=== PATIENT | female | born 1950 | race Two or more races ===

== ENCOUNTER → 2019-05-16 | Outpatient (CLI) | payer MEDICARE, OTHER ==
[~2019-05-16] MED LIST: ASPIRIN EC81 MG ORAL; CARVEDILOL6.25 MG ORAL; COUMADIN3 MG ORAL; FUROSEMIDE20 M1 ORAL; KCL; OMEPRAZOLE40 M1 ORAL
--- NOTE | 2019-05-16 18:00 | Consultation ---
DATE OF CONSULTATION: 05/16/2019 REASON FOR CONSULTATION: Referral for colonoscopy. HISTORY OF PRESENT ILLNESS: This is a very pleasant 68-year-old female with past medical history of diabetes, history of mitral valve replacement, mechanical one, was referred to us for evaluation for screening colonoscopy. PAST MEDICAL HISTORY: 1. Diabetes. 2. Cardiac valve surgery. 3. Hypertension. 4. Gastroesophageal reflux disease. PAST SURGICAL HISTORY: Cardiac valve replacement. MEDICATIONS: She is on potassium, Lasix, Carvedilol, Coumadin, aspirin, and omeprazole. ALLERGIES: No known allergies. FAMILY HISTORY: No family history of GI malignancies. SOCIAL HISTORY: The patient denies any tobacco, alcohol, or IV drug abuse. REVIEW OF SYSTEMS: A 10-point review of systems was performed and pertinent positives in HPI. PHYSICAL EXAMINATION: VITAL SIGNS: Stable. The patient is afebrile. HEENT: Normocephalic and atraumatic. Sclerae anicteric. NECK: Supple. No evidence of obvious lymphadenopathy. CARDIOVASCULAR: Regular rate and rhythm. Plus S1 and S2. No obvious murmur. LUNGS: Clear to auscultation bilaterally. ABDOMEN: Positive bowel sounds. Soft and nontender. No rebound. No guarding. No peritoneal sign. EXTREMITIES: No cyanosis. No clubbing. No edema. LABORATORY DATA: Not available. ASSESSMENT AND PLAN: A 68-year-old female with evidence of history of anemia also needs a screening colonoscopy. Referred for endoscopy and colonoscopy. The risks and benefits of the procedure were discussed in detail. The patient was given the prep. The patient was told to stop the Coumadin 3 days prior to the procedure and the patient was placed on Lovenox twice a day injections for pre and postprocedure. The patient is scheduled for , 05/31/2019. I want to thank, Dr. Bridges, for this kind referral. Bert Nice M.D. DR: LANG JOB#: [id number] CC: Estefania Bridges M.D.; Fax#: [phone]
== END | disposition home or self-care (01) ==
LOC: PAN 12:52
DX: E11.9 Type 2 diabetes mellitus without complications (principal); I10 Essential (primary) hypertension; K21.9 Gastro-esophageal reflux disease without esophagitis; Z79.01 Long term (current) use of anticoagulants; Z95.2 Presence of prosthetic heart valve; Z79.82 Long term (current) use of aspirin; Z79.899 Other long term (current) drug therapy

== ENCOUNTER 2019-05-30 09:01 | Day surgery (SDC) | payer MEDICARE, OTHER ==
[~2019-05-30] VITALS: Ht 152.4 cm; Wt 67.6 kg
[2019-05-30] VITALS (9 sets, daily range): BP systolic 93–112; BP diastolic 58–64
[2019-05-30] MEDS ORDERED: SILDENAFIL20 MG ORAL (09:39)
[2019-05-30] MEDS ORDERED: FUROSEMIDE40 MG ORAL (09:39)
[2019-05-30] MEDS ORDERED: WARFARIN SODIUM2 MG ORAL (09:39)
[2019-05-30 10:01] LABS: HEMOGLOBIN 10.7 G/DL (12.0-16.0); MEAN CORPUSCULAR VOLUME 95 FL (80-99); PLATELET COUNT 163 K/UL (150-450); RED BLOOD COUNT 3.59 M/UL (4.20-5.40); RED CELL DISTRIBUTION WIDTH 13.3 % (11.6-14.8)
[2019-05-30 10:07] LABS: INR 1.9 (0.9-1.1)
[2019-05-30 10:09] LABS: ANION GAP 11 mmol/L (5-15); BLOOD UREA NITROGEN 13 mg/dL (7-18); CALCIUM 8.6 MG/DL (8.5-10.1); CARBON DIOXIDE 23 MMOL/L (21-32); CHLORIDE 102 MMOL/L (98-107); CREATININE 0.9 MG/DL (0.55-1.30); POTASSIUM 3.9 MMOL/L (3.5-5.1); SODIUM 136 MMOL/L (136-145)
[2019-05-30] MEDS ORDERED: LOVENOX10 MG SUBQ (10:26)
--- NOTE | 2019-05-30 10:38 | NUR ---
spoke with Dr Nice regarding blood thinner management. Pt has held Coumadin since 05/27/19 and started Lovenox injection from 05/28/19. INR this morning shows 1.9. Dr Nice is ok to proceed procedure. Anesthesiologist was notified and discuss it pre procedure as needed. Post procedure blood thinner management will be ordered. Addendum: 05/30/19 at 1100 by EKATERINA CASTAÑEDA Amended: Links added.
[2019-05-30] MEDS ORDERED: DiphenhydrAMINE 50mg/ml Inj IVP PRN (10:45)
[2019-05-30] MEDS ORDERED: Lidocaine 1% MPF 10mg/ml 5ml ONE (10:45)
[2019-05-30] MEDS ORDERED: Atropine Sulfate 0.4mg/ml inj IVP PRN (10:45)
[2019-05-30] MEDS ORDERED: fentaNYL 100 mcg/2 mL IV PRN (10:45)
[2019-05-30] MEDS ORDERED: Midazolam 2mg/2ml Inj IVP PRN (10:45)
[2019-05-30] MEDS ORDERED: Propofol 200mg/20ml IV ONE (10:45)
--- NOTE | 2019-05-30 10:50 | Anethesia Preoperative Eval ---
Anesthesia Pre-op PMH/ROS General Date of Evaluation: May 30, 2019 Time of Evaluation: 10:41 Anesthesiologist: estela ASA Score: ASA 4 Mallampati Score Class I : Soft palate, uvula, fauces, pillars visible Class II: Soft palate, uvula, fauces visible Class III: Soft palate, base of uvula visible Class IV: Only hard plate visible Mallampati Classification: Class II Surgeon: suzanne Diagnosis: abdominal pain Surgical Procedure: colonoscopy Anesthesia History: none Social History: smoking - nonsmoker Family History: no anesthesia problems Allergies: Coded Allergies: No Known Allergies (Unverified , 05/30/19) Medications: see eMAR Patient NPO?: Yes Past Medical History Cardiovascular: Reports: HTN, CAD, valve dz - valve replacement, arrhythmia, other - chf HEENT: Reports: cataract (L), cataract (R), other - ear pain Hematology/Immune: Reports: anemia, other - anticoagulant therapy on coumadin Musculoskeletal/Integumentary: Reports: OA PSxH Narrative: cardia valve replacement, hysterectomy Anesthesia Pre-op Phys. Exam Physician Exam Last Vital Signs Date Time Temp Pulse Resp B/P (MAP) Pulse Ox O2 Delivery O2 Flow Rate FiO2 05/30/19 10:05 Room Air 05/30/19 09:54 98.6 100 18 112/62 100 Constitutional: NAD Neurologic: CN 2-12 intact Cardiovascular: other - irreg irreg Respiratory: CTA Gastrointestinal: S/NT/ND Airway Exam Mallampati Score: Class II MO: limited Neck: flexible TMD: 2fb ROM: limited Dentures: upper, lower Anesthesia Pre-op A/P Labs Hematology Test 05/30/19 09:49 White Blood Count 11.0 K/UL (4.8-10.8) H Red Blood Count 3.59 M/UL (4.20-5.40) L Hemoglobin 10.7 G/DL (12.0-16.0) L Hematocrit 34.0 % (37.0-47.0) L Mean Corpuscular Volume 95 FL (80-99) Mean Corpuscular Hemoglobin 29.9 PG (27.0-31.0) Mean Corpuscular Hemoglobin Concent 31.6 G/DL (32.0-36.0) L Red Cell Distribution Width 13.3 % (11.6-14.8) Platelet Count 163 K/UL (150-450) Mean Platelet Volume 9.1 FL (6.5-10.1) Neutrophils (%) (Auto) % (45.0-75.0) Lymphocytes (%) (Auto) % (20.0-45.0) Monocytes (%) (Auto) % (1.0-10.0) Eosinophils (%) (Auto) % (0.0-3.0) Basophils (%) (Auto) % (0.0-2.0) Differential Total Cells Counted 100 Neutrophils % (Manual) 89 % (45-75) H Lymphocytes % (Manual) 8 % (20-45) L Monocytes % (Manual) 3 % (1-10) Eosinophils % (Manual) 0 % (0-3) Basophils % (Manual) 0 % (0-2) Band Neutrophils 0 % (0-8) Platelet Estimate Adequate Platelet Morphology Normal Hypochromasia 1+ Coagulation Test 05/30/19 09:49 Prothrombin Time 19.1 SEC (9.30-11.50) H Prothromb Time International Ratio 1.9 (0.9-1.1) H Activated Partial Thromboplast Time 46 SEC (23-33) H Chemistry Test 05/30/19 09:49 Sodium Level 136 MMOL/L (136-145) Potassium Level 3.9 MMOL/L (3.5-5.1) Chloride Level 102 MMOL/L (98-107) Carbon Dioxide Level 23 MMOL/L (21-32) Anion Gap 11 mmol/L (5-15) Blood Urea Nitrogen 13 mg/dL (7-18) Creatinine 0.9 MG/DL (0.55-1.30) Estimat Glomerular Filtration Rate > 60 mL/min (>60) Glucose Level 142 MG/DL (74-106) H Calcium Level 8.6 MG/DL (8.5-10.1) Risk Assessment & Plan Assessment: asa4 Plan: mac. vitamin k, ffp available, contact primary care (message left). Status Change Before Surgery: No Pre-Antibiotics Drug: Madeline Goodwin MD May 30, 2019 10:50
--- NOTE | 2019-05-30 11:00 | Pre-Procedure Note/Attestation ---
Pre-Procedure Note/Attestation Complete Prior to Procedure Planned Procedure: not applicable Procedure Narrative: esophagogastroduodenoscopy and colonoscopy Indications for Procedure Pre-Operative Diagnosis: screening GERD Attestation I attest that I discussed the nature of the procedure; its benefits; risks and complications; and alternatives (and the risks and benefits of such alternatives ), prior to the procedure, with the patient (or the patient's legal in store marketing representative). I attest that, if there was a reasonable possibility of needing a blood transfusion, the patient (or the patient's legal in store marketing representative) was given the [facility] standardized written summary, pursuant to the [place] Blood Safety Act ([place] Health and Safety Code # 1645, as amended). I attest that I re-evaluated the patient just prior to the surgery and that there has been no change in the patient's H&P, except as documented below: Bert Nice MD May 30, 2019 11:00
--- NOTE | 2019-05-30 11:00 | Short Stay Surgery H&P ---
History of Present Illness History of Present Illness Chief Complaint see recent office note HPI Bharath Henriquez is a 68 year old female who was admitted on for Abdominal Pain Patient History Allergies: Coded Allergies: No Known Allergies (Unverified , 05/30/19) Medication History Scheduled Aspirin Ec* (Aspirin Ec*), 81 MG ORAL DAILY, (Reported) Carvedilol* (Carvedilol*), Unknown Dose ORAL EVERY 12 HOURS, (Reported) Enoxaparin* (Lovenox*), Unknown Dose SUBQ EVERY 12 HOURS, (Reported) Furosemide* (Lasix*), 40 MG ORAL DAILY, (Reported) Omeprazole (Omeprazole), MG ORAL DAILY, (Reported) Sildenafil Citrate (Sildenafil), 20 MG ORAL TID, (Reported) Warfarin Sod* (Warfarin Sod*), 2 MG ORAL DAILY, (Reported) Physical Exam Vital Signs Last Vital Signs Date Time Temp Pulse Resp B/P (MAP) Pulse Ox O2 Delivery O2 Flow Rate FiO2 05/30/19 10:05 Room Air 05/30/19 09:54 98.6 100 18 112/62 100 Labs Laboratory Tests Test 05/30/19 09:49 White Blood Count 11.0 K/UL (4.8-10.8) H Red Blood Count 3.59 M/UL (4.20-5.40) L Hemoglobin 10.7 G/DL (12.0-16.0) L Hematocrit 34.0 % (37.0-47.0) L Mean Corpuscular Volume 95 FL (80-99) Mean Corpuscular Hemoglobin 29.9 PG (27.0-31.0) Mean Corpuscular Hemoglobin Concent 31.6 G/DL (32.0-36.0) L Red Cell Distribution Width 13.3 % (11.6-14.8) Platelet Count 163 K/UL (150-450) Mean Platelet Volume 9.1 FL (6.5-10.1) Neutrophils (%) (Auto) % (45.0-75.0) Lymphocytes (%) (Auto) % (20.0-45.0) Monocytes (%) (Auto) % (1.0-10.0) Eosinophils (%) (Auto) % (0.0-3.0) Basophils (%) (Auto) % (0.0-2.0) Differential Total Cells Counted 100 Neutrophils % (Manual) 89 % (45-75) H Lymphocytes % (Manual) 8 % (20-45) L Monocytes % (Manual) 3 % (1-10) Eosinophils % (Manual) 0 % (0-3) Basophils % (Manual) 0 % (0-2) Band Neutrophils 0 % (0-8) Platelet Estimate Adequate Platelet Morphology Normal Hypochromasia 1+ Prothrombin Time 19.1 SEC (9.30-11.50) H Prothromb Time International Ratio 1.9 (0.9-1.1) H Activated Partial Thromboplast Time 46 SEC (23-33) H Sodium Level 136 MMOL/L (136-145) Potassium Level 3.9 MMOL/L (3.5-5.1) Chloride Level 102 MMOL/L (98-107) Carbon Dioxide Level 23 MMOL/L (21-32) Anion Gap 11 mmol/L (5-15) Blood Urea Nitrogen 13 mg/dL (7-18) Creatinine 0.9 MG/DL (0.55-1.30) Estimat Glomerular Filtration Rate > 60 mL/min (>60) Glucose Level 142 MG/DL (74-106) H Calcium Level 8.6 MG/DL (8.5-10.1) Plan Attestation Are the patient's medical conditions optimized for surgery? Bert Nice MD May 30, 2019 11:00
--- NOTE | 2019-05-30 11:31 | Endoscopy Procedure Note ---
Endoscopy Procedure Note General Indication for Procedure: screening Procedures Performed: colonoscopy Operative Findings/Diagnosis: 3 polyps Specimen: yes Pt Tolerated Procedure Well: Yes Estimated Blood Loss: none Anesthesia Anesthesiologist: otf ring Anesthesia: MAC Inserted Devices Implant(s) used?: No Quality Quality of Bowel Preparation: Good Did scope reach the cecum?: Yes Was there any complications?: No GI Core Measures 50 yrs or older w/o bx or poly: No 10yrs. F/U recommended: Yes If not recommended, why?: Above average risk 18 years or older w/prev. colo: No Bert Nice MD May 30, 2019 11:31
--- NOTE | 2019-05-30 11:53 | Immediate Post-Op Evaluation ---
Immediate Post-Op Evalulation Immediate Post-Op Evalulation Procedure: colonoscopy w/bx Date of Evaluation: May 30, 2019 Time of Evaluation: 11:52 IV Fluids: 800ml 0.9ns Blood Products: none Estimated Blood Loss: negligible Blood Pressure Systolic: 93 Blood Pressure Diastolic: 61 Pulse Rate: 105 Respiratory Rate: 18 O2 Sat by Pulse Oximetry: 99 Temperature (Fahrenheit): 98.8 Pain Score (1-10): 0 Nausea: No Vomiting: No Complications none Patient Status: awake, reacts, patent Hydration Status: adequate Drug: Madeline Goodwin MD May 30, 2019 11:53
--- NOTE | 2019-05-30 11:54 | 48 Hour Post Anesthesia Eval ---
Post Anesthesia Evaluation Procedure: colonoscopy w/bx Date of Evaluation: May 30, 2019 Time of Evaluation: 11:54 Blood Pressure Systolic: 105 0: 56 Pulse Rate: 98 Respiratory Rate: 18 Temperature (Fahrenheit): 98.8 O2 Sat by Pulse Oximetry: 99 Airway: patent Nausea: No Vomiting: No Pain Intensity: 0 Hydration Status: adequate Cardiopulmonary Status: stable Mental Status/LOC: patient returned to baseline Post-Anesthesia Complications: none Follow-up care needed: N/A Madeline Bates MD May 30, 2019 11:54
--- NOTE | 2019-05-30 14:43 | Cardiology Report ---
APPROVED REPORT EKG Measurement Heart [id number] Atrial fibrillation Low voltage QRS Abnormal ECG
--- NOTE | 2019-05-30 16:45 | Procedure Note ---
DATE OF PROCEDURE: 05/30/2019 SURGEON: Bert Nice M.D. REFERRING PHYSICIAN: Estefania Bridges M.D. PROCEDURE: Colonoscopy with snare polypectomy. ANESTHESIA: Per Dr. Macdonald. INSTRUMENT: Olympus adult flexible colonoscope. INDICATIONS: Screening colonoscopy. REASON FOR PROCEDURE: The procedure, risks, benefits, and possible consequences, including hemorrhage, aspiration, perforation and infection, and alternative treatments, were explained to the patient/legal guardian by Dr. Bert Nice and the patient/legal guardian understood and accepted these risks. PROCEDURE IN DETAIL: After informed consent was obtained and the patient was adequately sedated, first rectal exam was performed, which was positive for internal hemorrhoids. Then, the scope was the advanced from the rectum into the cecum documented by appendiceal orifice, ileocecal valve, and right upper quadrant palpation. Quality of prep was good. The patient had total of three polyps, one in the cecum and two in transverse. One in the cecum measured roughly about 6 mm, removed with hot snare polypectomy technique. Two in the transverse, the first one measured roughly about 6 to 7 mm, removed with a hot snare. The second was really small, also removed with a hot snare polypectomy technique. The patient had evidence of significant diverticulosis both in the right and left colon. In the ascending colon, there was a honeycombing of that area secondary to significant diverticulosis. Retroflexion of rectum, which was performed on the exit, which showed evidence of a small internal hemorrhoids. The patient tolerated the procedure very well without any complication. SUMMARY OF FINDINGS: 1. Three colonic polyps removed. See above for details. 2. Diverticulosis. 3. Internal hemorrhoids. RECOMMENDATIONS: 1. Hold the heparin and Coumadin for today and resume tomorrow. 2. Call the doctor if the patient has evidence of rectal bleeding and come to the hospital. 3. Follow path. 4. Recommend repeat colonoscopy in three years given three polyps. I want to thank Dr. Bridges for this kind referral. Bert Nice M.D. DR: CHANTELLE JOB#: [id number] CC: Estefania Bridges M.D.; Fax#: [phone]
== END 2019-05-30 13:00 | disposition home or self-care (01) ==
LOC: GAS 09:01
DX: Z12.11 Encounter for screening for malignant neoplasm of colon (principal); K63.5 Polyp of colon; D12.3 Benign neoplasm of transverse colon; D12.0 Benign neoplasm of cecum; K57.90 Diverticulosis of intestine, part unspecified, without perforation or abscess without bleeding; K64.8 Other hemorrhoids; I48.91 Unspecified atrial fibrillation; Z79.01 Long term (current) use of anticoagulants; Z79.82 Long term (current) use of aspirin; Z79.899 Other long term (current) drug therapy; I11.0 Hypertensive heart disease with heart failure; I50.9 Heart failure, unspecified; M19.90 Unspecified osteoarthritis, unspecified site; Z90.710 Acquired absence of both cervix and uterus
CPT/HCPCS: 36415; 45385; 80048; 85007; 85025; 85610; 85730; 93005; J2704; 94003; 94150